=== PATIENT | female | born 1980 | race Hispanic/Latino ===

== ENCOUNTER 2024-08-29 06:09 | Emergency (ER) | payer BC ==
[~2024-08-29] VITALS: Ht 152.4 cm; Wt 81.6 kg
[2024-08-29 07:04] LABS: BASOPHILS # (AUTO) 0.06 K/uL (0.00-0.20); BASOPHILS % (AUTO) 0.7 % (0.0-5.0); EOSINOPHILS % (AUTO) 1.2 % (0.0-8.0); HEMATOCRIT 39.2 % (36-48); IMMATURE GRANULOCYTE ABSOLUTE 0.02 K/uL (0-1); LYMPHOCYTES % (AUTO) 23.9 % (21.0-51.0); MEAN CORPUSCULAR HGB CONC 32.7 g/dL (32.0-36.0); MEAN CORPUSCULAR VOLUME 88.9 fL (79-99); MONOCYTES # (AUTO) 0.6 K/uL (0.1-1.0); MONOCYTES % (AUTO) 6.8 % (3.0-13.0); NEUTROPHILS # (AUTO) 5.6 K/uL (1.8-7.7); NEUTROPHILS % (AUTO) 67.2 % (40.0-77.0); PLATELET COUNT (AUTO) 279 K/uL (130-400); RED BLOOD CELL COUNT(AUTO) 4.41 MIL/uL (4.00-5.50); RED CELL DISTRIBUTION WIDTH 13.1 % (11.0-15.5); WHITE BLOOD COUNT (AUTO) 8.3 K/uL (4.8-10.8)
[2024-08-29 07:13] LABS: APPEARANCE,URINE CLEAR (CLEAR); BILIRUBIN,URINE NEGATIVE (NEGATIVE); COLOR,URINE COLORLESS (YELLOW); CREATININE 0.7 mg/dL (0.5-1.0); GLUCOSE, URINE (UA) NEGATIVE (NEGATIVE); KETONES,URINE NEGATIVE (NEGATIVE); LEUKOCYTE ESTERASE ,URINE NEGATIVE Leu/uL (NEGATIVE); NITRATE,URINE NEGATIVE (NEGATIVE); POTASSIUM 3.5 mmol/L (3.5-5.1); PROTEIN,URINE NEGATIVE (NEGATIVE); UROBILINOGEN,URINE 0.2 mg/dL (0.2-1.0)
[2024-08-29 07:16] LABS: ADD UA MICROSCOPIC YES
[2024-08-29 07:17] LABS: MUCUS,URINE RARE LPF (None Seen); RBC,URINE 0-1 /HPF (0-1); SQUAMOUS EPITHELIAL CELL,UR RARE /HPF (0-2)
--- NOTE | 2024-08-29 07:25 | HMCIMG ---
EXAM: CR Chest, 1 View. CLINICAL HISTORY: Chest pain COMPARISON: None provided. FINDINGS: LUNGS: The lungs show no infiltrate or other acute finding. PLEURAL SPACES: No pleural effusion or pneumothorax. MEDIASTINUM: Cardiac size and mediastinal contours within normal limits. BONES: No aggressive appearing osseous lesion seen. IMPRESSION: 1. No acute cardiopulmonary findings. /[place]rian
--- NOTE | 2024-08-29 08:08 | HMCIMG ---
EXAM: CT Head Without IV contrast. CLINICAL HISTORY: facial numbness TECHNIQUE: Axial computed tomography images of the head/brain without intravenous contrast. COMPARISON: None provided. FINDINGS: BRAIN: No evidence of acute hemorrhage. No mass lesion. No CT evidence for acute territorial infarct. No midline shift or extra-axial collections. VENTRICLES: No hydrocephalus. ORBITS: The orbits are unremarkable. SINUSES AND MASTOIDS: The paranasal sinuses and mastoid air cells are clear. BONES: No fracture. SOFT TISSUES: Unremarkable. IMPRESSION: No acute intracranial abnormality. /[place]
--- NOTE | 2024-08-29 08:14 | ERN ---
General Chief Complaint: Chest Pain Stated Complaint: CHEST PAIN Time Seen by MD: 07:18 Source: patient History of Present Illness Initial Comments Patient is a 44-year-old female coming in to be evaluated for left neck discomfort and chest discomfort. Per patient she was laying down in bed felt pressure in her chest belching was accompanied with that pressure. She states that shortly after she started having left-sided neck pain and left-sided headache. She does suffer from migraines she states. Allergies: Coded Allergies: No Known Allergies (Unverified Allergy, Unknown, 08/29/24) Past Medical History Past Medical History: No Pertinent History Past Surgical History: Cholecystectomy, Other Surgical History Other: PLASTIC SX Female( History) LMP: Aug 17, 2024 ROS Dictation CONSTITUTIONAL: No chills, no fever, no weakness, no diaphoresis, no malaise. HEAD/FACE: No signs of trauma. EENT: No eye pain, no blurred vision, no tearing, no double vision, no ear p ain, no ear discharge, no nose pain, no nasal congestion, no throat pain, no throat swelling, no mouth pain. RESPIRATORY: No cough, no orthopnea, no SOB, no stridor, no wheezing. CARDIOVASCULAR: No chest pain, no edema, no palpitations, no syncope. GASTROINTESTINAL/ABDOMINAL: abdominal pain, no constipation, no diarrhea, no nausea, no vomiting. GENITOURINARY: No abnormal discharge, no dysuria, no frequent urination, no hematuria. No complaints of pain in the genitals. MUSCULOSKELETAL: No back pain, no gout, no joint pain, no joint swelling, muscle pain, muscle stiffness, neck pain. INTEGUMENTARY: No change in color, no change in hair/nails, no dryness, no lesion, no lumps, no rash. NEUROLOGICAL/PSYCH: No anxiety, not depressed, no emotional problem, no headache, no numbness, no pre-existing deficit, no history of seizures, no tremors, no weakness. HEMATOLOGIC/LYMPHATIC: Not anemic, no history of blood clots, no apparent bleeding, no bruising, glands not swollen. All Systems Negative, Except as Noted. Physical Exam Physical Exam Dictation VITAL SIGNS: Reviewed. GENERAL APPEARANCE: Alert, oriented x3, no acute distress, obese. HEAD AND FACE: Non-traumatic. EYES: PERRL, pink conjunctivas, eyelid no trauma, anterior chamber clear. EARS: Pinnas intact and no signs of trauma or erythema. Ear canals clear and no discharge. TMs no erythema. NOSE: No discharge, no bleeding. OROPHARYNX: Mouth normal, teeth no caries, tongue pink. Pharynx clear, no erythema. Tonsils no exudates, no abscesses noted. Mucous membrane moist. NECK: Supple, non-tender, no thyromegaly, no masses, no JVD, no bruits. BREAST: Deferred. CHEST: No tenderness, no crepitus, no paradoxical movement, no retractions. LUNGS: Clear, well-ventilated, symmetric, no rales, no wheezing, no rhonchi, no stridor, good breath sounds bilaterally. HEART: Regular rate, regular rhythm, no murmur, no gallops. VASCULAR: No peripheral edema. ABDOMEN: Soft, positive bowel sounds, nondistended, no guarding, nontender, no rebound, no masses no hepatomegaly, no splenomegaly, no Aguilar's sign, no hernias. RECTAL: Deferred. GENITAL: Deferred. NEUROLOGICAL: Normal speech, gross motor function intact, gross sensory function intact. MUSCULOSKELETAL: Neck nontender, full range of motion, back nontender, full range of motion. EXTREMITIES: Nontender, full range of motion. SKIN: Color pink, dry, no turgor, no rash, no lacerations, no abrasions, no contusions. LYMPHATICS: Deferred. Results Laboratory and Microbiology Lab and Micro Result Laboratory Tests Test 08/29/24 06:51 White Blood Count 8.3 K/uL (4.8-10.8) Red Blood Count 4.41 MIL/uL (4.00-5.50) Hemoglobin 12.8 g/dL (12.0-16.0) Hematocrit 39.2 % (36-48) Mean Corpuscular Volume 88.9 fL (79-99) Mean Corpuscular Hemoglobin 29.0 pg (27.0-33.0) Mean Corpuscular Hemoglobin Concent 32.7 g/dL (32.0-36.0) Red Cell Distribution Width 13.1 % (11.0-15.5) Platelet Count 279 K/uL (130-400) Mean Platelet Volume 11.2 fL (7.5-10.5) H Immature Granulocyte % (Auto) 0.2 % (0-1) Neutrophils (%) (Auto) 67.2 % (40.0-77.0) Lymphocytes (%) (Auto) 23.9 % (21.0-51.0) Monocytes (%) (Auto) 6.8 % (3.0-13.0) Eosinophils (%) (Auto) 1.2 % (0.0-8.0) Basophils (%) (Auto) 0.7 % (0.0-5.0) Neutrophils # (Auto) 5.6 K/uL (1.8-7.7) Lymphocytes # (Auto) 2.0 K/uL (1.0-4.8) Monocytes # (Auto) 0.6 K/uL (0.1-1.0) Eosinophils # (Auto) 0.10 K/uL (0.00-0.70) Basophils # (Auto) 0.06 K/uL (0.00-0.20) Absolute Immature Granulocyte (auto 0.02 K/uL (0-1) Nucleated Red Blood Cells 0.0 % (0.0-0.19) Urine Color COLORLESS (YELLOW) Urine Appearance CLEAR (CLEAR) Urine pH 5.0 (5.0-8.0) Urine Specific [place] 1.008 (1.001-1.031) Urine Protein NEGATIVE mg/dL (NEGATIVE) Urine Glucose (UA) NEGATIVE mg/dL (NEGATIVE) Urine Ketones NEGATIVE mg/dL (NEGATIVE) Urine Occult Blood +- (TRACE) (NEGATIVE) H Urine Nitrate NEGATIVE (NEGATIVE) Urine Bilirubin NEGATIVE mg/dL (NEGATIVE) Urine Urobilinogen 0.2 mg/dL (0.2-1.0) Urine Leukocyte Esterase NEGATIVE Judah/uL Urine RBC 0-1 /HPF (0-1) Urine WBC 2-5 /HPF (0-1) H Urine Squamous Epithelial Cells RARE /HPF (0-2) Urine Bacteria None /HPF (None Seen) Urine HCG, Qualitative NEGATIVE (NEGATIVE) Sodium Level 141 mmol/L (136-145) Potassium Level 3.5 mmol/L (3.5-5.1) Chloride Level 105 mmol/L (101-111) Carbon Dioxide Level 28 mmol/L (21-32) Blood Urea Nitrogen 11 mg/dL (7-18) Creatinine 0.7 mg/dL (0.5-1.0) Glomerular Filtration Rate Calc 111 mL/min (>90) Random Glucose 110 mg/dL (70-105) H Total Calcium 8.9 mg/dL (8.5-10.1) Troponin I High Sensitivity < 4 ng/L (4-50) L Labs Reviewed?: Yes EKG/XRAY/US/CT/MRI EKG Comment 08/29/2024 time 5:53 a.m. Ventricular rate 82 Sinus rhythm NM [address] wave elevation or depression X-RAY Comment [address] [place], [place] [id number] IMAGING REPORT Signed PATIENT: KATHIA CHANDLER MR#: [id number] : 1980 SEX: F AGE: 44 LOCATION: [facility] ORDER 8 STATUS: REG ER REPORT#: [id number] SERVICE 7 REASON: Chest pain ORDERING PHYSICIAN: PABLO GILL MD PROCEDURE: CXR1VW - CHEST 1VW EXAM: CR Chest, 1 View. CLINICAL HISTORY: Chest pain COMPARISON: None provided. FINDINGS: LUNGS: The lungs show no infiltrate or other acute finding. PLEURAL SPACES: No pleural effusion or pneumothorax. MEDIASTINUM: Cardiac size and mediastinal contours within normal limits. BONES: No aggressive appearing osseous lesion seen. IMPRESSION: 1. No acute cardiopulmonary findings. /[place] DICTATED BY: USMAN VILLAREAL MD DATE: 08/29/24823 ELECTRONICALLY SIGNED BY: USMAN VILLAREAL MD DATE: 08/29/24823 CT Scan Comment [facility] [address] [place] [address] IMAGING REPORT Signed PATIENT: KATHIA CHANDLER MR#: [id number] : 1980 SEX: F AGE: 44 LOCATION: [facility] ORDER 0641 STATUS: REG ER REPORT#: [id number] SERVICE 0640 REASON: facial numbness ORDERING PHYSICIAN: PABLO GILL MD PROCEDURE: HEAD WO - CT HEAD/BRAIN W/O CONTRAST EXAM: CT Head Without IV contrast. CLINICAL HISTORY: facial numbness TECHNIQUE: Axial computed tomography images of the head/brain without intravenous contrast. COMPARISON: None provided. FINDINGS: BRAIN: No evidence of acute hemorrhage. No mass lesion. No CT evidence for acute territorial infarct. No midline shift or extra-axial collections. VENTRICLES: No hydrocephalus. ORBITS: The orbits are unremarkable. SINUSES AND MASTOIDS: The paranasal sinuses and mastoid air cells are clear. BONES: No fracture. SOFT TISSUES: Unremarkable. IMPRESSION: No acute intracranial abnormality. /[place] DICTATED BY: USMAN VILLAREAL MD DATE: 08/29/24906 ELECTRONICALLY SIGNED BY: USMAN VILLAREAL MD DATE: 08/29/24906 [facility] MDM: Differential diagnosis: Tension headache, GERD, gastritis, anxiety, muscle strain, muscle spasms, Rationale: Tests considered and ordered secondary to shared decision making include: Previous outside records reviewed: Old ER visits. Risk of complication and/or morbidity or mortality of patient management: None Medications-Per medication reconciliation Need for hospitalization: Patient does not meet criteria for hospitalization. Patient is a 44-year-old female coming in to be evaluated for left-sided neck discomfort and spasms besides this he has been having abdominal pressure chest pressure with some belching. Throughout ER visit laboratory workup and EKG as well as chest x-ray has been negative. Patient has been asymptomatic. ED Course Orders Procedure Category Date Status Time Cbc With Differential LAB 08/29/24 Complete 06:18 Chest 1vw RAD 08/29/24 Resulted 06:18 Morphine 4mg Syg PHA 08/29/24 Complete (Morphine 4mg Syg) 06:30 Troponin I High LAB 08/29/24 Complete Sensitivity 06:18 Urinalysis Profile LAB 08/29/24 Complete 06:18 Basic Metabolic Panel LAB 08/29/24 Complete 06:18 12 Lead Ekg Tracing- EKG 08/29/24 Logged Technical 06:23 Ct Head/Brain W/O CT 08/29/24 Resulted Contrast 06:40 ,Urine Test LAB 08/29/24 Complete 06:40 Lidocaine Hcl 2% PHA 08/29/24 Complete Viscous (Lidocaine Hcl 08:30 Mag/Alum/Simeth 30ml PHA 08/29/24 Complete (Maalox Plus 30ml) 08:30 Pantoprazole 40mg Inj PHA 08/29/24 Complete (Protonix 40mg Inj 08:30 Orphenadrine Citrate PHA 08/29/24 Complete (Norflex) 08:30 Current Medications Medications (Trade) Dose Ordered Sig/Dano Route PRN Reason Start Time Stop Time Status Last Admin Dose Admin Al Hydroxide/Mg Hydroxide (MAALox PLUS 30ML) 30 ml ONCE ONCE PO 08/29/24 08:30 08/29/24 08:31 DC 08/29/24 08:23 Lidocaine HCl (Lidocaine HCl 2% Viscous) 10 ml ONCE ONCE PO 08/29/24 08:30 08/29/24 08:31 DC 08/29/24 08:24 Morphine Sulfate (morPHINE 4MG SYG) 4 mg ONCE ONCE IVP 08/29/24 06:30 08/29/24 06:31 DC Orphenadrine Citrate (Norflex) 60 mg ONCE ONCE IM 08/29/24 08:30 08/29/24 08:31 DC Pantoprazole Sodium (PROTonix 40MG INJ) 40 mg ONCE ONCE IVP 08/29/24 08:30 08/29/24 08:31 DC 08/29/24 08:24 Vital Signs Date Time Temp Pulse Resp B/P (MAP) Pulse Ox O2 Delivery O2 Flow Rate FiO2 08/29/24 06:11 98.2 81 20 118/71 97 Room Air 0 DX & DISP Disposition: Discharge Departure Impression: Primary Impression: GERD (gastroesophageal reflux disease) Additional Impressions: Anxiety, Tension headache, Muscle spasms of neck Condition: Stable Additional Instructions: You have been reviewed in the emergency department at [facility] after presenting with chest pain. After considering your history, your risk factors, your EKG and your blood test troponins, have been found to be at very low risk less than (1 in 100) of having a major adverse cardiac event (like heart attack) in the near future. In the " low risk" group, the risks of doing further tests and treatment as the inpatient outweighs the benefits. In many patients in the low risk group for the test of any sort or unnecessary, however he should discuss this further with his general practitioner who will understand the medical and personal backgrounds better. Because we have never declared you" no risk" we would suggest. 1 returning for medical review if you have further episodes of chest pain/arm pain or other concerning symptoms like dizziness, collapse, palpitations or shortness of breath. 2. Following up with your local doctor who will consider the need for further testing and will also ensure that any modifiable risk factors you may have for heart disease are optimally managed. Patient will be discharged in stable condition at the moment discharge patient states , no chest pain Referrals: SELF,REFERRAL (PCP) YIN CALLE MD Time of Disposition: 08:42 CHARLOTTE SEAY MD Aug 29, 2024 08:14
[2024-08-29] MEDS: MAG/ALUM/SIMETH 30 ML UDCUP PO ONE (08:23)
[2024-08-29] MEDS: LIDOCAINE HCL 2% VISCOUS 15 ML UDCUP PO ONE (08:24)
[2024-08-29] MEDS: PANTOPrazole 40 MG/VIAL IVP ONE (08:24)
[2024-08-29] MEDS ORDERED: PANT40TA55 PO (08:44)
[2024-08-29] MEDS ORDERED: DICL20GE TP (08:44)
[2024-08-29] MEDS: morPHINE 4 MG SYG IVP ONE (08:51)
[2024-08-29] MEDS: ORPHENADRINE 60MG/2ML IM ONE (08:51)
[2024-08-29 08:52] VITALS: BP 125/76; PULSE 76; RESP 20; TEMP 98.2; O2SAT 99
--- NOTE | 2024-08-29 13:35 | EKG ---
[facility] Test Date: 2024-08-29 Test Time: 06:19:17 Pat Name: KATHIA CHANDLER Department: ED Room: Gender: F [employer]: [id number] : 1980 Requested By: PABLO GILL Order Number: [id number] Reading MD: Radu Gregorio Measurements Intervals [place] Rate: 76 P: 45 OK: 159 QRS: 0 QRSD: 79 T: 4 QT: 374 QTc: 421 Interpretive Statements Sinus rhythm Low voltage, precordial leads Borderline T abnormalities, diffuse leads No previous ECG available for comparison Electronically Signed On 08-29-2024 16:21:50 CDT by Radu Gregorio Please click the below link to view image of tracing.
== END 2024-08-29 09:05 | disposition home or self-care (01) ==
LOC: EDH 06:09
DX: K21.9 Gastro-esophageal reflux disease without esophagitis (principal); F41.9 Anxiety disorder, unspecified; G44.209 Tension-type headache, unspecified, not intractable; Z90.49 Acquired absence of other specified parts of digestive tract
CPT/HCPCS: 99284; 96374; 70450; 71045; 84484; 80048; 85025; 81001; 81025; 36415; 93005; 96372; J2470; J2360